=== PATIENT | male | born 1965 | race Caucasian/White ===

== ENCOUNTER 2018-07-01 19:40 | Emergency (ER) | payer OTHER ==
--- NOTE | 2018-07-01 19:59 | CPEKG ---
Test Reason : OPEN Blood Pressure : / mmHG Vent. Rate : 076 BPM Atrial Rate : 076 BPM P-R Int : 178 ms QRS Dur : 108 ms QT Int : 373 ms P-R-T Axes : 061 051 014 degrees QTc Int : 420 ms Sinus rhythm Minimal ST depression, inferior leads Confirmed by Jeramie Win ([id number]) on 07/01/2018 7:59:13 PM Referred By: Confirmed By:Jeramie Win
--- NOTE | 2018-07-01 20:07 | EDPHY ---
H & P Stated Complaint: POS PE SOB, CP X 2 WKS/ON XARELTO FOR PREVIOUS PE IN JANUARY Time Seen by Provider: 07/01/18 19:57 HPI/ROS: CHIEF COMPLAINT: Dyspnea with exertion HISTORY OF PRESENT ILLNESS: The patient is a 52-year-old obese man with a history of PE found in January in [place]. He was placed on Xarelto and has been feeling much better until the last 2 weeks when he noticed dyspnea on exertion particularly when hiking but even when walking on flat surfaces. He also developed some mild left chest tightness over the last 3 days. He denies history of cardiac disease. He had a stress test in 2013 that was negative. No fevers. No cough. No shortness of breath or pain at rest. Severity: Moderate Modifying factors: Exertion REVIEW OF SYSTEMS: Constitutional: denies: chills, fever, recent illness, recent injury EENTM: denies: blurred vision, double vision, nose congestion Respiratory: denies: cough, shortness of breath Cardiac: denies: chest pain, irregular heart rate, lightheadedness, palpitations Gastrointestinal/Abdominal: denies: abdominal pain, diarrhea, nausea, vomiting, blood streaked stools Genitourinary: denies: dysuria, frequency, hematuria, pain Musculoskeletal: denies: joint pain, muscle pain Skin: denies: lesions, rash, jaundice, bruising Neurological: denies: headache, numbness, paresthesia, tingling, dizziness, weakness Hematologic/Lymphatic: denies: blood clots, easy bleeding, easy bruising Immunologic/allergic: denies: HIV/AIDS, transplant 10 systems reviewed and negative except as noted EXAM: GENERAL: Well-appearing, obese and in no acute distress. HEAD: Atraumatic, normocephalic. EYES: Pupils equal round and reactive to light, extraocular movements intact, sclera anicteric, conjunctiva are normal. ENT: TMs normal, nares patent, oropharynx clear without exudates. Moist mucous membranes. NECK: Normal range of motion, supple without lymphadenopathy or JVD. LUNGS: Breath sounds clear to auscultation bilaterally and equal. No wheezes rales or rhonchi. HEART: Regular rate and rhythm without murmurs, rubs or gallops. ABDOMEN: Soft, nontender, normoactive bowel sounds. No guarding, no rebound. No masses appreciated. BACK: No CVA tenderness, no spinal tenderness, step-offs or deformities EXTREMITIES: Normal range of motion, no pitting or edema. No clubbing or cyanosis. NEUROLOGICAL: Cranial nerves II through XII grossly intact. Normal speech, normal gait. 5/5 strength, normal movement in all extremities, normal sensation , normal reflexes PSYCH: Normal mood, normal affect. SKIN: Warm, dry, normal turgor, no visible rashes or lesions. 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 ROCIO - Family History Significant Family History: No pertinent family hx - Social History Smoking Status: Never smoked Alcohol Use: Sober Drug Use: None Constitutional: Initial Vital Signs Temperature (C) 36.8 C 07/01/18 19:47 Heart Rate 81 07/01/18 19:47 Respiratory Rate 18 07/01/18 19:47 Blood Pressure 161/111 H 07/01/18 19:47 O2 Sat (%) 92 07/01/18 19:47 O2 Delivery Mode Room Air Allergies/Adverse Reactions: Penicillins Allergy (Verified 07/01/18 19:52) Home Medications: Medication Instructions Recorded Allopurinol 07/01/18 Bystolic 07/01/18 DEXILANT 07/01/18 Xarelto 07/01/18 Medical Decision Making - Diagnostics EKG Interpretation: An EKG obtained and was read and documented in trace view. Please see trace view for full reading and report. Sinus rhythm, T-wave inversion in lead 3, no acute ischemic changes Imaging: Discussed imaging studies w/ weaving teacher Radiologist ED Course/Re-evaluation: 9:40 p.m. We had a long discussion about the test results and differential diagnosis. We discussed the questionable renal abnormality seen on CT and follow-up. They are leaving to go back to [place] in 2 days. He is currently asymptomatic. I suspect that he may have residual pain and symptoms from the site of the previous PE. We discussed indications for returning. His negative troponin is reassuring after several days with the symptoms. He declines further workup or testing at this time. Differential Diagnosis: Partial list of the Differential diagnosis considered include but were not limited to; pneumonia, PE, pleurisy, scarring and although unlikely based on the history and physical exam, I also considered pneumothorax, acute coronary disease. I discussed these differential diagnoses and the plan with the patient as well as the usual and expected course. The patient understands that the diagnosis is provisional and that in medicine we are not always correct and that further workup is often warranted. Usual and customary warnings were given. All of the patient's questions were answered. The patient was instructed to return to the emergency department should the symptoms at all worsen or return, otherwise to followup with the physician as we discussed. - Data Points Laboratory Results: Laboratory Results 07/01/18 20:10 07/01/18 20:10 Point of Care Test Results: Chemistry 07/01/18 07/01/18 20:20 20:20 POC Sodium 141 mEq/L mEq/L (135-145) POC Potassium 4.2 mEq/L mEq/L (3.3-5.0) POC Chloride 105 mEq/L mEq/L (97-110) POC BUN 19 mg/dL mg/dL (7-23) POC Creatinine 1.1 mg/dL mg/dL (0.7-1.3) POC Glucose 119 mg/dL H mg/dL (70-100) POC Troponin I 0.02 ng/mL ng/mL (0.00-0.08) ISTAT H&H 07/01/18 20:20 POC Hgb 18.4 gm/dL H gm/dL (13.7-17.5) POC Hct 54 % H % (40-51) Departure - Departure Disposition: Home, Routine, Self-Care Clinical Impression: Shortness of breath on exertion Condition: Fair Instructions: Dyspnea (ED) Referrals: HORACE SALOMON [Other] - As per Instructions
[2018-07-01] MEDS ORDERED: IOPAMIDOL (ISOVUE 370) 100 ML BTL IV ONE ×3 (20:24→20:49)
[2018-07-01 20:29] LABS: PLATELET COUNT 193 10^3/uL (150-400)
[2018-07-01 20:36] LABS: INR 1.16 (0.83-1.16)
[2018-07-01 22:00] VITALS: BP 143/72
== END 2018-07-01 21:58 | disposition home or self-care (01) ==
DX: R06.02 Shortness of breath (principal); E66.9 Obesity, unspecified; Z86.711 Personal history of pulmonary embolism; Z79.01 Long term (current) use of anticoagulants
CPT/HCPCS: 82435-PO; 82565-PO; 82947-PO; 84132-PO; 84295-PO; 84484-PO; 84520-PO; 85014-PO; Q9967